=== PATIENT | male | born 1940 | race Caucasian/White ===

== ENCOUNTER 2019-01-06 19:31 | Emergency (ER) | payer BC ==
[2019-01-06 19:51] VITALS: BP 125/76
[2019-01-06] MEDS ORDERED: Cephalexin CAP* 500 MG PO ONE (20:02)
[2019-01-06] MEDS ORDERED: predniSONE TAB* 20 MG PO ONE (20:02)
--- NOTE | 2019-01-06 20:05 | UC ---
Skin Complaint HPI - HPI Summary HPI Summary: patient woke up with red swollen right thumb, he thinks he was bit by something. the area is warm and red and swollen, redness extends up the wrist - History of Current Complaint Chief Complaint: UCSkin Time Seen by Provider: 01/06/19 19:54 Stated Complaint: BUG BITE Hx Obtained From: Patient Onset/Duration: Sudden Onset, Lasting Hours Skin Exposure Onset/Duration: Hours Ago Timing: Constant Onset Severity: Mild Current Severity: Moderate Pain Intensity: 7 Location: Discrete Character: Swelling, Redness, Raised Aggravating Factor(s): Nothing Alleviating Factor(s): Nothing - Allergy/Home Medications Allergies/Adverse Reactions: Allergies Allergy/AdvReac Type Severity Reaction Status Date / Time No Known Allergies Allergy Verified 01/06/19 19:41 PMH/Surg Hx/FS Hx/Imm Hx Previously Healthy: Yes - Surgical History Surgical History: Yes Surgery Procedure, Year, and Place: tonsils, kidney surgery - Family History Known Family History: Positive: Hypertension - Social History Alcohol Use: Occasionally Substance Use Type: None Smoking Status (MU): Never Smoked Tobacco Review of Systems All Other Systems Reviewed And Are Negative: Yes Constitutional: Positive: Negative Skin: Positive: Other - redness Musculoskeletal: Positive: Arthralgia Is Patient Immunocompromised?: No Physical Exam Triage Information Reviewed: Yes Appearance: Well-Appearing, Well-Nourished, Pain Distress Vital Signs: Initial Vital Signs Temp 97.4 F 01/06/19 19:35 Pulse 72 01/06/19 19:35 Resp 19 01/06/19 19:35 BP 125/76 01/06/19 19:35 Pulse Ox 97 01/06/19 19:35 Vital Signs Reviewed: Yes Eye Exam: Normal ENT Exam: Normal Dental Exam: Normal Neck exam: Normal Respiratory Exam: Normal Cardiovascular Exam: Normal Abdominal Exam: Normal Bowel Sounds: Positive: Present Musculoskeletal Exam: Normal Neurological Exam: Normal Psychological Exam: Normal Skin: Positive: Other - erythema and swelling of the Course/Dx - Course Course Of Treatment: hx obtained, exam performed ,meds reviewed, treated for cellulitis - Differential Diagnoses - Skin Complaint Differential Diagnoses: Abscess, Tick Born Illness, Urticaria - Diagnoses Provider Diagnosis: Cellulitis Discharge - Sign-Out/Discharge Documenting (check all that apply): Patient Departure All imaging exams completed and their final reports reviewed: No Studies - Discharge Plan Condition: Stable Disposition: HOME Prescriptions: Cephalexin CAP* [Keflex CAP*] 500 mg PO BID #13 cap predniSONE [Prednisone 20 MG TAB] 20 mg PO DAILY #9 tablet Patient Education Materials: Cellulitis (ED) Referrals: Quin Rothman MD [Primary Care Provider] - Additional Instructions: 1. take the medication as prescribed. 2. Use Ice for the next 24 hours then once the heat from the wound is gone you can soak in warm water. 3. Follow up with the health center next week - Billing Disposition and Condition Condition: STABLE Disposition: Home
== END 2019-01-06 20:15 | disposition home or self-care (01) ==
LOC: UCEAST 19:31
DX: L03.012 Cellulitis of left finger (principal)
CPT/HCPCS: 99212; A9270-GY; G0463; J7512

== ENCOUNTER 2022-09-19 15:08 | Observation (INO) ==
[2022-09-19] MEDS ORDERED: Ondansetron 4 mg VIAL 2 MG/ML 2 ml VIAL IV ONE (15:16)
[2022-09-19 15:33] LABS: ABS Basophils 0.1 10^3/ul (0-0.2); ABS Eosinophils 0.2 10^3/ul (0-0.6); ABS Lymphocytes 2.5 10^3/ul (1.0-4.8); ABS Monocytes 0.7 10^3/ul (0-0.8); ABS Neutrophils 4.2 10^3/ul (1.5-7.7); Eosinophil % 2.2 %; Hematocrit 49 % (42-52); Hemoglobin 16.2 g/dL (14.0-18.0); Lymphocyte % 32.8 %; Mean Corpuscular HGB Conc 33 g/dL (31-36); Mean Corpuscular Hemoglobin 31 pg (27-31); Mean Corpuscular Volume 91 fL (80-94); Mean Platelet Volume 8.3 fL (7.4-10.4); Nucleated Red Blood Cells % 0.2; Platelet Count 287 10^3/uL (150-450); Red Blood Count 5.33 10^6 /uL (4.18-5.48); Red Cell Distribution Width 15 % (10-15); White Blood Count 7.6 10^3/uL (3.5-10.8)
[2022-09-19 15:41] LABS: Activated Partial Thrombo Time 31.7 seconds (26.0-38.0); INR 1.14 (0.88-1.18)
[2022-09-19] MEDS ORDERED: Lactated Ringers 1000 ml BAG 1,000 ML IV ONE ×3 (16:04→20:51)
[2022-09-19 16:28] LABS: Albumin 4.8 g/dL (3.2-5.2); Albumin/Globulin Ratio 1.7 (1-3); Calcium 10.5 mg/dL (8.6-10.3); Globulin 2.8 g/dL (2-4); HDL Cholesterol 42.8 mg/dL; Potassium 4.2 mmol/L (3.5-5.0); Total Bilirubin 0.5 mg/dL (0.2-1.0); Total Protein 7.6 g/dL (6.4-8.9); eGFR CKD-EPI 56.2 (>60)
[2022-09-19] MEDS ORDERED: Iodixanol (CONTRAST) 320 MG/ML 100 ML SDV IV ONE (16:53)
[2022-09-19 17:07] LABS: High Sensitivity Troponin 1 Hr 29 pg/mL (<20)
[2022-09-19 19:21] LABS: Urine Appearance Clear; Urine Bilirubin Negative (Negative); Urine Blood Negative (Negative); Urine Color Yellow; Urine Glucose Negative (Negative); Urine Ketones Negative (Negative); Urine Nitrite Negative (Negative); Urine Protein Negative (Negative); Urine Urobilinogen Negative (Negative)
[2022-09-19 19:27] LABS: Urine Specific Gravity > 1.060 (1.002-1.030)
[2022-09-19] MEDS ORDERED: Enoxaparin 40 MG/0.4 ML SYR SUBCUT SCH (21:00)
[2022-09-19] MEDS ORDERED: Dextrose 50% Syringe 50 ml 25 GM/50 ML SYRINGE IV PUSH PRN (21:06)
[2022-09-20 05:26] LABS: ABS Lymphocytes 1.6 10^3/ul (1.0-4.8); ABS Monocytes 1.2 10^3/ul (0-0.8); ABS Neutrophils 8.6 10^3/ul (1.5-7.7); Eosinophil % 0.4 %; Hematocrit 39 % (42-52); Hemoglobin 12.7 g/dL (14.0-18.0); Lymphocyte % 13.8 %; Mean Corpuscular HGB Conc 33 g/dL (31-36); Mean Corpuscular Hemoglobin 30 pg (27-31); Mean Corpuscular Volume 91 fL (80-94); Mean Platelet Volume 7.8 fL (7.4-10.4); Platelet Count 184 10^3/uL (150-450); Red Blood Count 4.22 10^6 /uL (4.18-5.48); Red Cell Distribution Width 15 % (10-15); White Blood Count 11.4 10^3/uL (3.5-10.8)
[2022-09-20] MEDS ORDERED: Lactated Ringers 1000 ml BAG 1,000 ML IV ONE (06:04)
[2022-09-20 06:20] LABS: Albumin 3.7 g/dL (3.2-5.2); Albumin/Globulin Ratio 2.1 (1-3); Calcium 8.9 mg/dL (8.6-10.3); Globulin 1.8 g/dL (2-4); Potassium 4.6 mmol/L (3.5-5.0); Total Bilirubin 0.7 mg/dL (0.2-1.0); Total Protein 5.5 g/dL (6.4-8.9); eGFR CKD-EPI 69.2 (>60)
[2022-09-20 14:47] LABS: Magnesium 1.8 mg/dL (1.9-2.7); Phosphorus 3.6 mg/dL (2.5-5.0)
[2022-09-20 15:07] VITALS: BP 118/66
== END 2022-09-20 15:44 | disposition home or self-care (01) ==
LOC: ED 15:08 → EDHOLD 15:08 → SUATTDRO 17:55 → EDHOLD 19:34 → MEDTELE 20:23
PROVIDERS: ADMIT Internal Medicine; ATTEND Internal Medicine